=== PATIENT | male | born 1965 | race Caucasian/White ===

== ENCOUNTER 2024-09-04 09:07 | Emergency (ER) | payer BC, SELFPAY ==
[2024-09-04 09:17] VITALS: BP 182/120
[2024-09-04] MEDS: PROTONIX IV 40 MG IV (10:04)
[2024-09-04] MEDS: TORADOL 15 MG IV (10:04)
--- NOTE | 2024-09-04 10:13 | ED.GENMED ---
History of Present Illness
General
Chief Complaint: Abdominal Symptoms
Time Seen by Provider: 09/04/24 09:31
History of Present Illness
History of Present Illness:
59-year-old male with history of hypertension and diabetes presenting for upper abdominal pain. Patient reports symptoms for the past few weeks. Reports that symptoms have been intermittent, however last evening pain became worse. Pain is in the
right side of his abdomen, and goes to his back. Went to urgent care prior to arrival, was advised to come to the hospital. Notes some nausea, denies vomiting. Denies changes in stool. Denies any history of abdominal surgeries. Denies
association with food. Does note that last night he had 5 guys burgers and fries. Denies chest pain or difficulty breathing. Denies fever or cough. Denies additional acute medical complaints.
Phy Exam
Physical Exam
Physical Exam:
General: Well-appearing, no clinical signs of dehydration, nontoxic and in no acute distress
HEENT: protecting airway
Neck: appears supple
CV: Normal heart rate, regular rhythm
Resp: No accessory muscle use, no increased work of breathing, lungs clear to auscultation bilaterally
Abd: Soft and non-distended, mild right upper quadrant and epigastric tenderness without rebound or guarding. No CVA tenderness.
Extremities: No deformities, no swelling, no erythema
Neuro: alert, no focal neurologic deficit
: deferred
Rectal: deferred
Psych: Normal affect
Skin: Intact
Course
Orders/Labs/Results
Orders:
Orders
09/04/24 09:51
Ketorolac [Toradol] 15 mg IV NOW STA
Pantoprazole [Protonix IV] 40 mg IV NOW STA
09/04/24 09:52
US Abdomen Complete/Upper Urgent
Comment:
Reason For Exam: RUQ pain to the back
09/04/24 09:58
Complete Blood Count/With Diff Urgent
Comprehensive Metabolic Panel Urgent
Lipase Urgent
09/04/24 10:20
Electrocardiogram (*1) Urgent
Reason for Study: Abdominal Pain
EKG- Treatment ONCE
09/04/24 12:45
CT Abd/pelvis W Iv Cont Urgent
Comment:
Reason For Exam: right sided pain
09/04/24 14:11
CT Chest/abd/pelvis Angio W/wo Urgent
Comment:
Reason For Exam: abnormal aorta on CT, back pain, HTN
Abnormal Lab Results
09/04/24
09:58
Hct 52.7 H %
(39.0-52.0)
Absolute Lymphs (auto) 1.1 L 10^3/uL
(1.2-3.4)
Immature Gran % 0.6 H %
(0-0.5)
Lymphocytes % 16.6 L %
(20.5-51.1)
Carbon Dioxide 21 L mmol/L
(22-30)
Glucose 185 H mg/dl
(70-99)
Total Protein 8.3 H g/dl
(6.3-8.2)
09/04/24 09:58
09/04/24 09:58
Vital Signs
Initial and Last Documented VS:
Initial Vital Signs
Temp Pulse Resp BP Pulse Ox
98.0 F 98 16 182/120 98
09/04/24 09:17 09/04/24 09:17 09/04/24 09:17 09/04/24 09:17 09/04/24 09:17
Last Documented Vital Signs
Temp Pulse Resp BP Pulse Ox
98.2 F 90 16 205/111 98
09/04/24 14:25 09/04/24 14:25 09/04/24 14:25 09/04/24 14:25 09/04/24 14:25
MDM/Problems Addressed
MDM/Problems Addressed:
59-year-old male presenting for right upper quadrant and upper back pain. Vital signs are significant for high blood pressure, however patient notes that his blood pressures typically uncontrolled.
On exam, patient resting comfortably, no acute distress. Symptoms appear most consistent with cholelithiasis versus cholecystitis versus indigestion. Plan for screening laboratory analysis and right upper quadrant ultrasound imaging. Toradol and
pantoprazole ministered for patient symptoms.
12:45 -patient's ultrasound within normal limits. Labs within normal limits. Patient notes pain is improved after medications, however still is having some symptoms. For this reason we will obtain CT abdomen pelvis
14:00 -CT of the abdomen pelvis shows a possible low-flow dissection in the abdominal aorta. In discussion with vascular, recommending CT angio. Patient updated.
16:00-vascular bedside, reports CT without significant concerning findings. CT read again and demonstrate thoracic dissection without any hematoma or thoracic component. There is mention of a right sided possible pneumonitis. Patient without any
respiratory symptoms. He is diabetic, not presently a candidate for steroids. Vascular surgeon feels patient is stable for discharge, advising outpatient vascular follow-up in their office, however does not suspect that this is the etiology of
patient's pain. Unclear etiology of right sided back pain, possibly musculoskeletal. Advised follow-up with his primary care doctor regarding his uncontrolled high blood pressure, particularly in the setting of a abdominal dissection. Return
precautions discussed and patient verbalized understanding.
*Critical Care Note
Total Time (30-74mins, 75-104mins- exclusive of procedures): Not Applicable
ED Attending Note
-
Portions of this chart may have been created with voice recognition software.� Occasional wrong word or��sound alike� substitutions may have occurred due to the inherent limitations of voice recognition software.
Discharge Plan
Departure
Patient Disposition: Home (Routine Discharge)
Date of Disposition: 09/04/24
Time of Disposition: 16:12
Patient with high blood pressure during this ER visit?: Yes
Condition: Good
Discharge Problem:
Hypertension, Thoracic aortic dissection
Instructions: Abdominal Pain, BLOOD PRESSURE
Referrals:
Darwin Aguiar MD [Family Provider] -
Julian Muhammad MD [Active] - 12/05/24 8:30 am
(Vascular surgery office appointment
Please call central scheduling to make a CAT scan appointment before this follow-up appointment
[phone])
Activity Restrictions/Additional Instructions:
You were seen in the emergency department for abdominal pain
You were found to have high blood pressure. You had an ultrasound of your gallbladder that was normal. You then had a CT of your abdomen which showed possible concern for a thoracic aortic dissection. You were seen by vascular surgery,
recommended no interventions at this time, however you will need to follow-up in their office.
Please follow-up closely with your primary care physician regarding management of your high blood pressure.
Return to the emergency department for any worsening of your symptoms, or any development of chest pain, difficulty breathing, abdominal pain with persistent vomiting and inability to tolerate food or liquid by mouth (concern for dehydration),
weakness, headache or confusion, fever greater than 100.4, or any additional symptoms that are concerning to you.
Thank you for choosing [facility].
Interventions
Interventions:
*Risk Screen - Suicide Last Done: 09/04/24 14:45
*Neglect/Abuse Screening Last Done: 09/04/24 14:45
DE-Rrbmbj-Gzyfpwnpux Assessment Last Done: 09/04/24 14:45
Discharge Date and Time
Print Language: BRITISH
[2024-09-04 10:22] LABS: % Basophils 0.4 % (0-2); % Eosinophils 0.6 % (0-6); % Immature Granulocytes 0.6 % (0-0.5); % Lymphocytes 16.6 % (20.5-51.1); % Monocytes 7.4 % (1.7-9.3); % Neutrophils 74.4 % (42.2-75.2); Absolute Lymphocytes 1.1 10^3/uL (1.2-3.4); Absolute Monocytes 0.5 10^3/uL (0.1-0.6); Absolute Neutrophils 5.1 10^3/uL (1.4-6.5); Hematocrit 52.7 % (39.0-52.0); Hemoglobin 17.6 g/dL (13.0-18.0); Mean Corp Hgb Conc. 33.4 g/dL (33.0-37.0); Mean Corpuscular Hgb 30.6 pg (27.0-31.0); Mean Corpuscular Volume 91.7 fL (80.0-94.0); Mean Platelet Volume 9.1 fL (7.4-10.4); Nucleated Red Blood Cells % 0 % (-); Platelet Count 208 10^3/uL (130-400); Red Blood Cell Count 5.75 10^6/uL (4.70-6.10); Red Cell Dist. Width 12.2 % (11.5-14.5); White Blood Cell Count 6.9 10^3/uL (4.8-10.8)
[2024-09-04 10:37] LABS: ALT (SGPT) 32 U/L (0-50); AST (SGOT) 25 U/L (17-59); Alkaline Phosphatase 105 U/L (38-126); Blood Urea Nitrogen 11 mg/dl (9-20); Calcium 9.8 mg/dl (8.4-10.2); Carbon Dioxide 21 mmol/L (22-30); Chloride 104 mmol/L (98-107); Glucose 185 mg/dl (70-99); Lipase 85 U/L (23-300); Potassium 4.6 mmol/L (3.5-5.1); Sodium 140 mmol/L (135-145); Total Bilirubin 0.7 mg/dl (0.2-1.3); Total Protein 8.3 g/dl (6.3-8.2); eGFR > 60.00
[2024-09-04 14:25] VITALS: BP 205/111
--- NOTE | 2024-09-04 16:18 | W.PN.UPDATE ---
Update Note
Progress Note Update
Seen and examined in the emergency room with SHELLI Ricci. Full consultation to follow. Briefly 59-year-old male with history of chronic hypertension and hypercholesterolemia (also history of tobacco use quit 25 years ago, prior smoked for about 20
years before that). Presented with 2 to 3 weeks of abdominal pain that then radiated around his right flank to his back. Initially had the abdominal pain, then it relieved and then recurred with radiation around the back. Went to urgent care
today and then was referred to the emergency room. No prior history of vascular disorders/peripheral arterial disease/coronary revascularizations/aneurysms.
At the time I visited him in the emergency room, he notes that all his pain is resolved. He feels fine.
On exam/he is awake and alert. Head is normocephalic and atraumatic. Eyes are anicteric. Neck is soft without jugular venous distention. Breathing is unlabored. Abdomen is soft, nondistended, nontender. Lower extremity with 2+ femoral,
popliteal, pedal pulses palpable bilaterally.
CT scan images reviewed by me. In the infrarenal abdominal aorta there is a focal dissection/area of plaque weakening with mild ectasia.
Plan/ Focal nonlimiting dissection or plaque rupture but no evidence of overt aortic aneurysm or impending rupture. I do not think this resulted in the patient's pain based on his description of pain. Likely an incidental finding. Regardless has
no pain now. No indication for any intervention. Discussed complete with patient. Liban diagrams to facilitate his understanding. Will repeat scan in about 3 months and see him in the office. Just repeat scan in order to assess for any
aneurysmal degeneration, and therefore will proceed with noncontrast scan.
--- NOTE | 2024-09-04 16:19 | CON.VAS ---
Consultation
Consultation Request
Date/Time Consultation Performed: 09/04/24
Performing Provider: Julian Muhammad MD
Reason for Consultation: ABD pain
Medical History
-
Chief Complaint: ABD pain
History of Present Illness:
This is an 59-year-old male with significant past medical history of chronic hypertension, hypercholesterolemia, and diabetes who presents to [place] [facility] with reports of abdominal pain for the past 2 to 3 weeks that radiates around his right flank
to his back. Endorses that he experienced abdominal pain roughly 3 weeks ago, then it relieved and then recurred with radiation around the back. Concerned as it persisted intermittently he went to urgent care today and then was referred to the
emergency room. No prior history of vascular disorders/peripheral arterial disease/coronary revascularizations/aneurysms. However, at the time of this visit he notes that all his pain is resolved and he feels back at baseline.
Past Medical History
Past Medical History: HTN and NIDDM
Social History
Tobacco: Former Smoker (tobacco use quit 25 years ago, prior smoked for about 20 years )
Allergies / Home Medications
Allergy/AdvReac Type Severity Reaction Status Date / Time
acetaminophen [From Ultracet] Allergy Hives Verified 09/04/24 09:19
tramadol [From Ultracet] Allergy Hives Verified 09/04/24 09:19
Review of Systems
-
History Source: Patient
Constitutional: Reports No Symptoms
EENT: Reports No Symptoms
Respiratory: Reports No Symptoms
Cardiac: Reports No Symptoms
Abdomen/GI: Reports Abdominal Pain, Nausea (Intermittent) and Vomiting (Denies)
: Reports No Symptoms
Musculoskeletal: Reports No Symptoms
Skin: Reports No Symptoms
Neurological: Reports No Symptoms
Endocrine: Reports No Symptoms
Physical Exam
Vital Signs
Temp Pulse Resp BP Pulse Ox
98.2 F 90 16 205/111 98
09/04/24 14:25 09/04/24 14:25 09/04/24 14:25 09/04/24 14:25 09/04/24 14:25
Lab Results
09/04/24 09:58
09/04/24 09:58
Physical Exam
General: No Apparent Distress and Comfortable
HEENT: Normocephalic, Anicteric and Atraumatic
Respiratory: Non Labored Respirations
Cardiac: Negative JVD
GI: Soft, Non Tender and Non Distended
Musculoskeletal: No Edema
Skin: Warm and Dry
Neuro: AO x 3
Pulses: Bilateral Femoral: +2, Bilateral Popliteal: +2 and Bilateral Dorsalis Pedis: +2
Assessment / Plan
-
Assessment: 59-year-old male a focal dissection/area of plaque weakening with mild ectasia at infrarenal abdominal aorta
Plan:
Focal nonlimiting dissection or plaque rupture but no evidence of overt aortic aneurysm or impending rupture. Dr. Julian Muhammad at bedside who does not believe that nonlimiting focal dissection resulted in the patient's pain based on his description of
pain. Likely an incidental finding. Regardless has no pain now. Per attending Dr. Julian Muhammad no indication for any intervention. Discussed complete with patient. Dr. Muhammad laly diagrams to facilitate his understanding. Plan is to repeat scan in
about 3 months and see him in the office. Outpatient plan relayed to ED provider.
== END 2024-09-04 16:28 | disposition home or self-care (01) ==
LOC: EMR 09:07
PROVIDERS: EMERGENCY PHYSICIAN Student in an Organized Health Care Education/Training Program; FAMILY PHYSICIAN Family Medicine; OTHER PHYSICIAN Surgery Vascular Surgery
DX: I71.019 Dissection of thoracic aorta, unspecified (principal); I10 Essential (primary) hypertension; E78.00 Pure hypercholesterolemia, unspecified; E11.9 Type 2 diabetes mellitus without complications; Z87.891 Personal history of nicotine dependence
CPT/HCPCS: 99285; 96374; 96375; 71275; 74174; 74177; 76700; 80053; 83690; 85025; 93005; Q9967

== ENCOUNTER → 2024-12-07 08:45 | Outpatient (REF) | payer BC, SELFPAY | LOC: HWRAD 08:45 | PROVIDERS: ATTENDING PHYSICIAN Surgery Vascular Surgery; FAMILY PHYSICIAN Family Medicine | DX: I71.02 Dissection of abdominal aorta (principal) | CPT/HCPCS: 74176 ==